=== PATIENT | male | born 1965 | race Caucasian/White ===

== ENCOUNTER 2017-11-11 00:30 | Emergency (ER) | payer SELFPAY ==
--- NOTE | 2017-11-11 01:40 | XRAY Report ---
Procedure Date: 11/11/2017 Accession Number: [id number] / [id number] Procedure: XR - Shoulder 3 View LT CPT Code: FULL RESULT: EXAM: LEFT SHOULDER RADIOGRAPHY EXAM DATE: 11/11/2017 01:34 AM. CLINICAL HISTORY: Injury, numbness COMPARISON: None. TECHNIQUE: 3 views. FINDINGS: Bones: Normal. No fracture or bone lesion. Joints: The glenohumeral and acromioclavicular joints are normal. Soft tissues: The visualized hemithorax is unremarkable. No soft tissue swelling. IMPRESSION: Normal shoulder radiography. [facility]
--- NOTE | 2017-11-11 01:47 | ED Physician Documentation ---
PD HPI UPPER EXT INJURY - Stated complaint Stated Complaint: LT SHOULDER INJURY - Chief complaint Chief Complaint: Neuro - History obtained from History obtained from: Patient - History of Present Illness Location: Left, Shoulder Type of injury: Fall Where injury occurred: Other (While camping) Timing - onset: Today Timing - details: Abrupt onset Worsened by: Moving Associated symptoms: Tingling Contributing factors: No: Anticoagulated Similar symptoms before: No diagnosis Recently seen: Not recently seen - Additonal information Additional information: 52-year-old male presents the emergency department for evaluation of a shoulder injury which occurred this evening. The patient was camping and has been drinking alcohol and fell attempting to get in a chair. The patient landed on his shoulder and reports being in a precarious position. When he stood up he was having Discomfort in the shoulder and tingling that went down his arm. The patient has no motor or sensory changes. No injury to the head, neck, torso or lower extremities. Review of Systems Constitutional: denies: Fever Eyes: denies: Discharge Cardiac: denies: Chest pain / pressure Respiratory: denies: Dyspnea GI: denies: Abdominal Pain Musculoskeletal: reports: Extremity pain, Joint pain. denies: Neck pain Neurologic: denies: Generalized weakness, Difficulty speaking, Confused, Altered mental status, Head injury Immunocompromised: denies: Chemotherapy PD PAST MEDICAL HISTORY - Past Medical History Past Medical History: Yes Musculoskeletal: Gout - Past Surgical History Past Surgical History: Yes - Present Medications Home Medications: Ambulatory Orders Medication Instructions Recorded Confirmed No Known Home Medications [No 11/11/17 11/11/17 Known Home Medications] - Allergies Allergies/Adverse Reactions: Allergies Allergy/AdvReac Type Severity Reaction Status Date / Time No Known Drug Allergies Allergy Verified 11/11/17 00:57 - Social History Does the pt smoke?: Yes Smoking Status: Current every day smoker Does the pt drink ETOH?: Yes Does the pt have substance abuse?: No - Immunizations Immunizations are current?: Yes - POLST Patient has POLST: No PD ED PE NORMAL - General General: Alert and oriented X 3, No acute distress - HEENT HEENT: Atraumatic, PERRL, EOMI, Ears normal - Derm Derm: Normal color - Extremities Extremities: No deformity, Other (The patient has decreased range of motion in the left shoulder, the patient has no obvious deformity of the left shoulder, there is no tenderness along the clavicle or crepitus. The patient is having difficulty with full active range of motion of the left shoulder and has difficulty with full abduction. The patient has no swelling of the left upper extremity. The patient has equal manager transmission strength. The patient has normal 5/5 muscle strength in the left and right upper extremity. The patient has brisk cap refill. There is a normal bilateral radial pulses.) - Neuro Neuro: Alert and oriented X 3, planning and analysis manager 2-12 intact, No motor deficit, Normal speech - Psych Psych: Normal mood Results - Vitals Vitals: Vital Signs - 24 hr 11/11/17 00:30 Temperature 36.0 C L Heart Rate 76 Respiratory 18 Rate Blood Pressure 148/91 H O2 Saturation 99 Oxygen O2 Source Room air - Rads (name of study) Left shoulder x-ray Radiology: Final report received PD MEDICAL DECISION MAKING - ED course ED course: The patient has no fracture dislocation of the shoulder but he may have injured his rotator cuff since he has limited range of motion. The patient will be placed in a sling and have advised follow-up with primary care for an outpatient MRI and reevaluation. The patient understands and agrees. I discussed warning signs and recommended returning to the emergency department immediately for worsening or any concerns. - Sepsis Event Vital Signs: Vital Signs - 24 hr 11/11/17 00:30 Temperature 36.0 C L Heart Rate 76 Respiratory 18 Rate Blood Pressure 148/91 H O2 Saturation 99 Oxygen O2 Source Room air Departure - Departure Disposition: 01 Home, Self Care Clinical Impression: Shoulder injury Qualifiers: Encounter type: initial encounter Laterality: left Qualified Code(s): S49.92XA - Unspecified injury of left shoulder and upper arm, initial encounter Condition: Good Instructions: ED Sprain Shoulder, ED Torn Rotator Cuff Comments: Please follow-up with your primary care physician this week for recheck and further evaluation. If your symptoms are not improving he may need a MRI of your shoulder to further evaluate your symptoms. Please return to the emergency department immediately for worsening or any concerns
[2017-11-11 02:12] VITALS: BP 146/90
== END 2017-11-11 02:10 | disposition home or self-care (01) ==
LOC: ED 00:30
DX: S49.92XA Unspecified injury of left shoulder and upper arm, initial encounter (principal); F17.200 Nicotine dependence, unspecified, uncomplicated; W07.XXXA Fall from chair, initial encounter; Y92.833 Campsite as the place of occurrence of the external cause
CPT/HCPCS: 99282; 99284